=== PATIENT | female | born 1930 | race Caucasian/White ===

== ENCOUNTER 2018-01-15 09:52 | Day surgery (SDC) | payer MEDICARE ==
[~2018-01-15] VITALS: Ht 153.7 cm; Wt 54.4 kg
[2018-01-15] VITALS (10 sets, daily range): BP systolic 113–148; BP diastolic 61–83
[~2018-01-15 09:52] MED LIST: APRACLONIDINE 0.5% LEFT EYE SCH; ASPIR-LOW81 MG PO; CALCIUM500 M3 PO; CRESTOR10 M1 ORAL; MIRALAX17 GM PO; TENORMIN25 MG PO; Tetracaine 0.5% Opth 4ml Soln LEFT EYE SCH; Tetracaine 0.5% Opth 4ml Soln RIGHT EYE SCH; VITAMIN D1000 UNI1 ORAL; Vigamox Opth Soln 3ml LEFT EYE SCH; Vigamox Opth Soln 3ml RIGHT EYE SCH
[2018-01-15] MEDS ORDERED: Tetracaine 0.5% Opth 4ml Soln ONE ×2 (10:28→12:43)
[2018-01-15] MEDS ORDERED: Vigamox Opth Soln 3ml ONE (10:29)
[2018-01-15] MEDS ORDERED: Tetracaine 0.5% Opth 4ml Soln RIGHT EYE SCH (11:15)
[2018-01-15] MEDS: Vigamox Opth Soln 3ml RIGHT EYE SCH ×3 (11:18→11:25)
--- NOTE | 2018-01-15 12:34 | Brief Operative Note ---
Immediate Post Operative Note Operative Note Chief Complaint: blurred vision Pre-op Diagnosis: right cataract Procedure: right cataract extraction with intraocular lens implant Post-op Diagnosis: same Post-op Diagnosis: same as pre-op Surgeon: Gavin Bunn Health Professional: none Additional Surgeons: none Anesthesiologist: Wesley Anesthesia: general Specimen: none Complications: none Condition: stable Fluids: LR TKO Estimated Blood Loss: none Drains: none Implant(s) used?: Yes Gavin Bunn MD January 15, 2018 12:34
[2018-01-15] MEDS ORDERED: Lidocaine 2% MPF 5ml Vial INJ ONE (12:41)
[2018-01-15] MEDS ORDERED: Kenalog-40 1ml Vial ONE (12:42)
[2018-01-15] MEDS ORDERED: Maxitrol Opth Oint 3.5gm ONE (12:42)
[2018-01-15] MEDS ORDERED: Povidone-Iodine 5% opth solution ONE (12:42)
[2018-01-15] MEDS ORDERED: Pred Forte 1% Opth Susp 1ml ONE (12:42)
[2018-01-15] MEDS ORDERED: Dexamethasone 4mg/ml vial ONE (12:42)
[2018-01-15] MEDS ORDERED: BSS 15ml BTL ONE (12:42)
[2018-01-15] MEDS ORDERED: Sodium Hyaluronate 10 mg/ml 0.85ml ONE (12:43)
[2018-01-15] MEDS ORDERED: Bupivacaine 0.75% 30ml vial INJ ONE (12:43)
--- NOTE | 2018-01-15 12:45 | Pre-Procedure Note/Attestation ---
Pre-Procedure Note/Attestation Complete Prior to Procedure Planned Procedure: left Procedure Narrative: revision of trabeculectomy left eye Indications for Procedure Pre-Operative Diagnosis: glaucoma left eye uncontrolled Attestation I attest that I discussed the nature of the procedure; its benefits; risks and complications; and alternatives (and the risks and benefits of such alternatives ), prior to the procedure, with the patient (or the patient's legal business services representative). I attest that, if there was a reasonable possibility of needing a blood transfusion, the patient (or the patient's legal business services representative) was given the [facility] standardized written summary, pursuant to the Saqib Davide Blood Safety Act ([place] Health and Safety Code # 1645, as amended). I attest that I re-evaluated the patient just prior to the surgery and that there has been no change in the patient's H&P, except as documented below: Gavin Bunn MD January 15, 2018 12:45
[2018-01-15] MEDS ORDERED: LR 1000ml 1,000 ML IVLG SCH (13:55)
--- NOTE | 2018-01-15 13:58 | Brief Operative Note ---
Immediate Post Operative Note Operative Note Pre-op Diagnosis: glaucoma left eye uncontrolled Procedure: revision of trabeculectomy left eyet Post-op Diagnosis: same Surgeon: Gavin Bunn Hot Stick Man: nando Additional Surgeons: none Anesthesiologist: Wesley Anesthesia: MAC Specimen: none Complications: none Condition: stable Fluids: LR TKO, D/c IV before discharge Estimated Blood Loss: none Drains: none Implant(s) used?: No Gavin Bunn MD January 15, 2018 13:58
[2018-01-15] MEDS ORDERED: fentaNYL 100 mcg/2 mL IV PRN (14:00)
--- NOTE | 2018-01-15 14:00 | Anethesia Preoperative Eval ---
Anesthesia Pre-op PMH/ROS General Date of Evaluation: January 15, 2018 Time of Evaluation: 12:45 Anesthesiologist: Octavoi ASA Score: ASA 3 Mallampati Score Class I : Soft palate, uvula, fauces, pillars visible Class II: Soft palate, uvula, fauces visible Class III: Soft palate, base of uvula visible Class IV: Only hard plate visible Mallampati Classification: Class II Surgeon: Sepideh Diagnosis: Glaucoma left eye Surgical Procedure: Tevision trabeculectomy Allergies: Coded Allergies: No Known Allergies (Unverified , 08/07/12) Past Medical History Cardiovascular: Reports: HTN, other - Hypertrophic cardiomyopathy Neurologic/Psychiatric: Reports: dementia HEENT: Reports: glaucoma PMH Narrative: Glaucoma, HTN, hypertrophic cardiomyopathy, memory loss PSxH Narrative: Hip fracture Anesthesia Pre-op Phys. Exam Physician Exam Last Vital Signs Date Time Temp Pulse Resp B/P (MAP) Pulse Ox O2 Delivery O2 Flow Rate FiO2 01/15/18 10:57 98.6 60 20 147/62 96 Room Air 98.6 Constitutional: NAD Neurologic: CN 2-12 intact, other - Poor memory Cardiovascular: RRR, no M/R/G Respiratory: CTA Gastrointestinal: S/NT/ND Airway Exam Mallampati Score: Class II MO: full ROM: full Teeth: intact Anesthesia Pre-op A/P Risk Assessment & Plan Assessment: Class 3 female for trabeculectomy under MAC anesthesia Plan: MAC, TIVA Status Change Before Surgery: No Pre-Antibiotics Drug: None Saqib Cunningham MD January 15, 2018 14:00
--- NOTE | 2018-01-15 14:02 | Discharge Instructions ---
Discharge Instructions Discharge Instructions Follow up with: Dr. Gavin Bunn, tomorrow 01/16/18 at 0950, my office Diet: regular Resume Normal Activity?: No Activity: light activity Follow Up Orders return to my office tomorrow 0950 AM Return to Work/School on: January 31, 2018 Special Instructions do not remove patch For Surgical Patients May shower: No Contact your physician for: pain For Congestive Heart Failure Reminder Report to your physician any weight gain of 5 pounds or more in one week. Gavin Bunn MD January 15, 2018 14:02
--- NOTE | 2018-01-15 14:02 | Immediate Post-Op Evaluation ---
Immediate Post-Op Evalulation Immediate Post-Op Evalulation Procedure: Trabeculectomy revision Date of Evaluation: January 15, 2018 Time of Evaluation: 13:55 IV Fluids: 500 Blood Pressure Systolic: 138 Blood Pressure Diastolic: 61 Pulse Rate: 65 Respiratory Rate: 16 O2 Sat by Pulse Oximetry: 99 Temperature (Fahrenheit): 97.5 Pain Score (1-10): 0 Nausea: No Vomiting: No Complications N0 Patient Status: awake, patent, none Hydration Status: adequate Drug: None Saqib Cunningham MD January 15, 2018 14:02
--- NOTE | 2018-01-15 14:03 | 48 Hour Post Anesthesia Eval ---
Post Anesthesia Evaluation Procedure: Trabeculectomy revision Date of Evaluation: January 15, 2018 Time of Evaluation: 14:15 Blood Pressure Systolic: 126 0: 58 Pulse Rate: 73 Respiratory Rate: 20 O2 Sat by Pulse Oximetry: 99 Airway: patent Nausea: No Vomiting: No Pain Intensity: 0 Hydration Status: adequate Cardiopulmonary Status: Stable Mental Status/LOC: patient returned to baseline Follow-up Care/Observations: As per surgery Post-Anesthesia Complications: No anesthetic complication Follow-up care needed: N/A Saqib Cunningham MD January 15, 2018 14:03
--- NOTE | 2018-01-15 22:15 | Operative Note - Dictated ---
DATE OF OPERATION: 01/15/2018 PREOPERATIVE DIAGNOSIS: Uncontrolled glaucoma, left eye. POSTOPERATIVE DIAGNOSIS: Uncontrolled glaucoma, left eye. PROCEDURE: Revision of trabeculectomy, left eye. SURGEON: Gavin Bunn M.D. ANESTHESIA: MAC as per Dr. Cunningham. INDICATIONS: The intraocular pressure after trabeculectomy with maximum medications was 30 mmHg. FINDINGS: See indications and diagnoses. DESCRIPTION OF PROCEDURE: The patient received preoperatively topical antibiotics, tetracaine and was brought into the operating room and given satisfactory sedation by Dr. Cunningham. A total of 10 mL of mixture of half and half Xylocaine 2% with epinephrine and Marcaine 0.75% were injected as modified [place] akinesia and peribulbar anesthesia (4 mL). The patient was then prepped and draped in the usual manner. A 6-0 silk traction suture was passed through the peripheral cornea and the eye was rotated down nasally. The area of the trabeculectomy was identified and so was an area of encapsulation above the iridectomy previously done. A 27-gauge short needle was bent and was introduced through the conjunctiva and several punctures were made in the encapsulated area. This resulted in egress of fluid and formation of diffuse blood. The procedure was done twice both in the temporal and in the nasal and encapsulated area. Dexamethasone and gentamicin were injected into the inferior tenon space. Vigamox drops and Maxitrol ointment were applied. The eye was closed. A patch and shield were applied. The patient tolerated well the procedure and left the operating room in good condition. Final diagnoses and procedures as above. aGvin Bunn M.D. DR: GALO JOB#: [id number] CC: REJI
== END 2018-01-15 15:00 | disposition home or self-care (01) ==
LOC: SUR 09:52
DX: H40.9 Unspecified glaucoma (principal); Z79.82 Long term (current) use of aspirin; E78.00 Pure hypercholesterolemia, unspecified; I10 Essential (primary) hypertension; I42.2 Other hypertrophic cardiomyopathy; F03.90 Unspecified dementia, unspecified severity, without behavioral disturbance, psychotic disturbance, mood disturbance, and anxiety
CPT/HCPCS: 66250; J1100; J3490; 94003; 94150